=== PATIENT | female | born 1960 | race Caucasian/White ===

== ENCOUNTER 2017-10-24 11:07 | Day surgery (SDC) | payer OTHER ==
[2017-10-24] VITALS (12 sets, daily range): BP systolic 101–131; BP diastolic 55–76; PULSE 66–88; RESP 15–22; Ht 152.4 cm; Wt 64.9 kg
[~2017-10-24] VITALS: Ht 152.4 cm; Wt 64.9 kg
[~2017-10-24 11:07] MED LIST: CEFAZOLIN 2 GM/50 ML (PMX) 50 ML IVPB ONE
[2017-10-24] MEDS ORDERED: SOD CHLORIDE 0.9% 1,000 ML IV SCH (13:00)
[2017-10-24] MEDS ORDERED: BUPIVACAINE 0.25% (MPF) 30 ML INJ ONE (13:48)
[2017-10-24] MEDS ORDERED: PROPOFOL 20 ML ONE (14:49)
[2017-10-24] MEDS ORDERED: MIDAZOLAM 1 MG/ML 2 ML INJ ONE (14:49)
[2017-10-24] MEDS ORDERED: LIDOCAINE 2% (SDV) 5 ML INJ ONE (14:49)
[2017-10-24] MEDS ORDERED: FENTAnyl 50 MCG/ML VIAL ONE (14:49)
[2017-10-24] MEDS ORDERED: PROCHLORPERAZINE 10 MG INJ IV PRN (15:00)
[2017-10-24] MEDS ORDERED: CEFAZOLIN 1 GM INJ ONE (15:00)
[2017-10-24] MEDS ORDERED: ONDANSETRON 4 MG INJ ONE (15:00)
[2017-10-24] MEDS ORDERED: OXYCODONE/ACETAMINOPHEN (5/325) TAB PO PRN (15:00)
[2017-10-24] MEDS ORDERED: ONDANSETRON 4 MG INJ IV PRN (15:00)
[2017-10-24] MEDS ORDERED: HYDROmorphONE (0.2 MG/ML) 10ML SYG IV PRN (15:00)
[2017-10-24] MEDS ORDERED: DEXAMETHASONE 4 MG/ML 1 ML INJ ONE (15:00)
[2017-10-24] MEDS ORDERED: DIPHENHYDRAMINE 50 MG INJ IV PRN (15:00)
[2017-10-24] MEDS ORDERED: FENTAnyl 50 MCG/ML VIAL IV PRN (15:00)
[2017-10-24] MEDS ORDERED: MEPERIDINE 25 MG INJ IV PRN (15:00)
[2017-10-24] MEDS ORDERED: FAMOTIDINE 20 MG INJ ONE (15:17)
[2017-10-24] MEDS ORDERED: EPHEDrine SULFATE 50 MG/5 ML SYG ONE (15:24)
[2017-10-24] MEDS ORDERED: IBUPROFEN 800 MG TAB PO ONE (15:30)
--- NOTE | 2017-10-24 15:34 | OPR ---
Date/Time of Note Date/Time of Note DATE: 10/24/17 TIME: 15:31 Operative Report Procedure Date: Oct 24, 2017 Preoperative Diagnosis right forehead mass Postoperative Diagnosis same Operation/Procedure Performed 1. excision of right forehead mass 3 cm incision 3 cm mass 2. localized adjacent tissue transfer with the use of skin flaps 6 sq cm defect 3. 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 She requests surgical excision. Risks alternatives benefits and personnel were discussed the patient. Patient expresses understanding and consents to the operation. Procedure Description Patient taken to the OR and prepped and draped in usual sterile fashion. Surgical timeout is performed. IV antibiotics given. Transverse incision is made over the right forehead mass with a 15 blade. Dissection Cardis cannot to the mass. The mass is excised with cautery. There is good hemostasis. Due to the tissue defect localized adjacent to his transfer with the cystic lymphadenopathy is performed. Multilayered closure with interrupted 3-0 Vicryl and running 4-0 Monocryl. Therapeutic subcutaneous local anesthesia was injected at the incision site. Dressings are applied. Mckay OROPEZA Oct 24, 2017 15:34
== END 2017-10-24 17:25 | disposition home or self-care (01) ==
LOC: SDS 11:07
PROVIDERS: ATTEND Surgery
DX: D17.0 Benign lipomatous neoplasm of skin and subcutaneous tissue of head, face and neck (principal); E78.5 Hyperlipidemia, unspecified
CPT/HCPCS: 14040; 88307; J0690; J1100; J2250; J2405; J3010; Z7512; Z7610